=== PATIENT | female | born 1945 | race Caucasian/White ===

== ENCOUNTER 2024-09-02 15:57 | Inpatient (IN) ==
[2024-09-02] MEDS ORDERED: IOPAMIDOL 100 ML BOTTLE IV ONE (15:58)
[2024-09-02] MEDS: METOPROLOL TARTRATE 5 MG/5 ML VIAL IV ONE (16:20)
[2024-09-02] MEDS: 0.9 % SODIUM CHLORIDE 500 ML IV ONE (16:20)
[2024-09-02] MEDS: AMIODARONE 150 MG/3 ML VIAL IV ONE (16:40)
[2024-09-02 16:41] LABS: Basophils # (Auto) 0.05 K/mcL (0.00-0.30); Basophils % (Auto) 0.4 % (0.0-2.0); Eosinophils # (Auto) 0.05 K/mcL (0.00-0.70); Eosinophils % (Auto) 0.4 % (0.0-7.0); Hematocrit 29.8 % (34.1-44.9); Hemoglobin 8.1 g/dL (11.2-15.7); Lymphocytes # (Auto) 0.89 K/mcL (1.50-4.80); Lymphocytes % (Auto) 6.9 % (15.5-49.0); Mean Corpuscular HGB Conc 27.2 g/dL (31.0-36.0); Mean Platelet Volume 9.3 fL (8.8-12.5); Monocytes # (Auto) 0.81 K/mcL (0.10-0.90); Monocytes % (Auto) 6.3 % (1.0-12.0); Neutrophils % (Auto) 85.7 % (38.0-78.0); Platelet Count 429 K/mcL (140-440); RBC 3.35 M/mcL (3.59-5.38); Red Cell Distribution Width 19.1 % (11.5-14.5); WBC 12.9 K/mcL (4.5-11.0)
[2024-09-02] MEDS: AMIODARONE 360 MG in PREMIX 1 BAG IV SCH ×3 (16:50→23:42)
[2024-09-02 16:55] LABS: Prothrombin Time 13.3 sec (11.9-14.5)
[2024-09-02 17:07] LABS: ALT/SGPT 12 U/L (<40); AST/SGOT 22 U/L (<32); Albumin 3.5 gm/dL (3.2-5.2); Albumin/Globulin Ratio 1.4 (1.0-2.3); Alkaline Phosphatase 66 U/L (39-117); Bilirubin,Total 0.3 mg/dL (0.1-1.0); Blood Urea Nitrogen 24 mg/dL (8-23); Calcium 8.7 mg/dL (8.6-10.4); Carbon Dioxide 36 mmol/L (22-30); Chloride 94 mmol/L (96-108); Globulin 2.5 gm/dL (2.2-3.7); Glomerular Filtration Rate 91; Glucose 123 mg/dL (70-105); Potassium 4.2 mmol/L (3.3-5.1); Sodium 142 mmol/L (133-145)
[2024-09-02 17:12] LABS: Thyroid Stimulating Hormone 1.31 uIU/mL (0.27-5.01)
[2024-09-02] MEDS: DIGOXIN 500 MCG/2 ML AMPUL IV ONE (17:15)
[2024-09-02] MEDS: HEPARIN SOD,PORK IN 0.45% NACL 25,000 UNIT in PREMIX 1 BAG IV SCH (17:16)
[2024-09-02] MEDS: HEPARIN 5,000 UNIT/ML VIAL IV ONE (17:16)
[2024-09-02 18:02] LABS: Partial Thromboplastin Time 28.3 sec (20.0-37.0)
[2024-09-02 19:24] LABS: C-Reactive Protein 2.33 mg/dL (0.03-0.80)
[2024-09-02] MEDS: AZITHROMYCIN 250 MG TABLET PO ONE (19:42)
[2024-09-02] MEDS: cefTRIAXone 2 GM in DEXTROSE 5% IN WATER 50 ML IV ONE (19:43)
[2024-09-02] MEDS: cefTRIAXone 2 GM VIAL ONE (19:44)
[2024-09-02 20:13] LABS: Anisocytosis 1+ (None Seen); Band Neutrophils % 5 % (0-10); Hypochromasia 3+ (None Seen); Lymphocytes % 4 % (15-49); Microcytosis 1+ (None Seen); Monocytes % (Manual) 5 % (1-12); Ovalocytes FEW (None Seen); Platelet Estimate NORMAL (Normal); RBC Fragments RARE (None Seen); RBC Morphology ABNORMAL (Normal); Segmented Neutrophils % 86 % (38-78); Stomatocytes 1+ (None Seen); Target Cells FEW (None Seen)
[2024-09-02 21:17] LABS: Appearance,Urine Clear (Clear); Bacteria,Urine Rare /hpf (0); Bilirubin,Urine Negative (Negative); Color,Urine Yellow; Glucose,Urine (UA) Negative (Negative); Ketones,Urine 40 mg/dL (Negative); Leukocyte Esterase,Urine Negative /uL (Negative); Nitrate,Urine Negative (Negative); PH,Urine 5.5 (5.0-9.0); Protein,Urine Negative (Negative); Urine Blood Negative ery/mcL (Negative); Urine RBC 1 /hpf (0-3); Urine Squamous Epithelial Cell 2 /hpf (0-4); Urine WBC 1 /hpf (0-4); Urobilinogen,Urine Normal
[2024-09-02] MEDS ORDERED: POLYETHYLENE GLYCOL 3350 17 GM PACKET PO PRN (21:44)
[2024-09-02] MEDS ORDERED: POTASSIUM CHLORIDE 20 MEQ TABLET PO PRN ×2 (21:44)
[2024-09-02] MEDS ORDERED: ONDANSETRON 4 MG/2 ML VIAL IV PRN (21:44)
[2024-09-02] MEDS ORDERED: POTASSIUM CHLORIDE 40 MEQ in DEXTROSE 5% IN WATER 500 ML IV PRN (21:44)
[2024-09-02] MEDS ORDERED: MAGNESIUM SULFATE 2 GM/50 ML BAG IV PRN (21:44)
[2024-09-02] MEDS ORDERED: METOCLOPRAMIDE 10 MG/2 ML VIAL IV PRN (21:44)
[2024-09-02 22:19] LABS: Retic Absolute 0.12 M/mcL (0.02-0.10)
[2024-09-02] MEDS: ENOXAPARIN 40 MG/0.4 ML SYRINGE SQ SCH (22:34)
[2024-09-02] MEDS: DOCUSATE SODIUM 100 MG CAPSULE PO SCH (22:35)
[2024-09-02 23:11] LABS: Iron 26 ug/dL (37-145); TIBC Calculation 265 ug/dl (228-428); Transferrin % Saturation 10 % (15-50)
[2024-09-03] MEDS: AMIODARONE 360 MG/200 ML BAG IV ONE ×2 (00:08→11:27)
[2024-09-03 05:40] LABS: Hematocrit 29.3 % (34.1-44.9); Hemoglobin 8.1 g/dL (11.2-15.7); Mean Cell Volume 88.3 fL (80.0-100.0); Mean Corpuscular HGB Conc 27.6 g/dL (31.0-36.0); Mean Platelet Volume 8.9 fL (8.8-12.5); Platelet Count 363 K/mcL (140-440); RBC 3.32 M/mcL (3.59-5.38); Red Cell Distribution Width 19.2 % (11.5-14.5); WBC 5.2 K/mcL (4.5-11.0)
[2024-09-03 06:35] LABS: ALT/SGPT 15 U/L (<40); AST/SGOT 27 U/L (<32); Albumin 3.6 gm/dL (3.2-5.2); Albumin/Globulin Ratio 1.3 (1.0-2.3); Alkaline Phosphatase 67 U/L (39-117); Bilirubin,Direct < 0.2 mg/dL (0-0.3); Bilirubin,Total < 0.2 mg/dL (0.1-1.0); Blood Urea Nitrogen 24 mg/dL (8-23); C-Reactive Protein 3.35 mg/dL (0.03-0.80); Calcium 9.3 mg/dL (8.6-10.4); Carbon Dioxide 37 mmol/L (22-30); Chloride 93 mmol/L (96-108); Globulin 2.7 gm/dL (2.2-3.7); Glomerular Filtration Rate 91; Glucose 156 mg/dL (70-105); Lactate Dehydrogenase 181 U/L (135-225); Phosphorous 3.5 mg/dL (2.5-4.5); Potassium 4.4 mmol/L (3.3-5.1); Sodium 140 mmol/L (133-145); Triglycerides 77 mg/dL (<150); Uric Acid 4.5 mg/dL (2.5-8.0)
[2024-09-03 06:57] LABS: Anisocytosis 2+ (None Seen); Eosinophils % (Manual) 1 % (0-7); Hypochromasia 1+ (None Seen); Lymphocytes % 4 % (15-49); Monocytes % (Manual) 1 % (1-12); Platelet Estimate NORMAL (Normal); RBC Morphology ABNORMAL (Normal); Segmented Neutrophils % 94 % (38-78)
[2024-09-03] MEDS: IRON POLYSACCHARIDE COMPLEX 150 MG CAPSULE PO SCH (09:58)
[2024-09-03 12:02] LABS: Appearance,Pleural Fluid Hazy; Color,Pleural Fluid Yellow; Lymphocytes,Pleural Fluid 40 %; Mesothelial,Pleural Fluid 3 %; Monocytes,Pleural Fluid 28 %; Neutrophils,Pleural Fluid 29 %; RBC,Pleural Fluid <50,000 /cumm
[2024-09-03 12:03] LABS: pH,Body Fluid 7.67
[2024-09-03 12:34] LABS: LDH,Pleural Fluid 114 U/L (<122)
[2024-09-03] MEDS: cefTRIAXone 1 GM VIAL IV SCH (17:31)
[2024-09-03] MEDS: METOPROLOL TARTRATE 25 MG TABLET PO SCH (20:10)
[2024-09-03] MEDS: 0.9 % SODIUM CHLORIDE 10 ML SYRINGE IV SCH (20:11)
[2024-09-04] MEDS: METOPROLOL TARTRATE 5 MG/5 ML VIAL IV PRN (04:04)
[2024-09-04 05:52] LABS: Hemoglobin 7.5 g/dL (11.2-15.7)
[2024-09-04 06:27] LABS: C-Reactive Protein 2.01 mg/dL (0.03-0.80)
[2024-09-04 06:33] LABS: Blood Urea Nitrogen 19 mg/dL (8-23); Calcium 8.8 mg/dL (8.6-10.4); Carbon Dioxide 40 mmol/L (22-30); Chloride 97 mmol/L (96-108); Glomerular Filtration Rate 82; Glucose 136 mg/dL (70-105); Potassium 4.4 mmol/L (3.3-5.1); Sodium 144 mmol/L (133-145)
[2024-09-04] MEDS ORDERED: IOPAMIDOL 100 ML BOTTLE IV ONE (08:13)
[2024-09-04] MEDS: acetaZOLAMIDE SOD 500 MG VIAL IV ONE (08:28)
[2024-09-04] MEDS ORDERED: metroNIDAZOLE 500 MG/100 ML BAG IV SCH (09:00)
[2024-09-04] MEDS: FUROSEMIDE 20 MG/2 ML VIAL IV ONE ×2 (09:09→09:19)
[2024-09-04] MEDS: METOPROLOL TARTRATE 25 MG TABLET PO SCH (09:19)
[2024-09-04 19:16] LABS: Hematocrit 26.5 % (34.1-44.9); Hemoglobin 7.2 g/dL (11.2-15.7)
[2024-09-04] MEDS: ENOXAPARIN 40 MG/0.4 ML SYRINGE SQ SCH (21:05)
[2024-09-05 06:24] LABS: Basophils # (Auto) 0.03 K/mcL (0.00-0.30); Basophils % (Auto) 0.4 % (0.0-2.0); Eosinophils # (Auto) 0.08 K/mcL (0.00-0.70); Hematocrit 27.5 % (34.1-44.9); Hemoglobin 7.4 g/dL (11.2-15.7); Lymphocytes # (Auto) 1.22 K/mcL (1.50-4.80); Lymphocytes % (Auto) 15.1 % (15.5-49.0); Mean Cell Volume 90.5 fL (80.0-100.0); Mean Corpuscular HGB Conc 26.9 g/dL (31.0-36.0); Mean Platelet Volume 9.7 fL (8.8-12.5); Monocytes % (Auto) 7.4 % (1.0-12.0); Neutrophils % (Auto) 75.7 % (38.0-78.0); Platelet Count 392 K/mcL (140-440); RBC 3.04 M/mcL (3.59-5.38); Red Cell Distribution Width 19.3 % (11.5-14.5); WBC 8.1 K/mcL (4.5-11.0)
[2024-09-05 06:52] LABS: ALT/SGPT 13 U/L (<40); AST/SGOT 20 U/L (<32); Albumin 3.2 gm/dL (3.2-5.2); Albumin/Globulin Ratio 1.4 (1.0-2.3); Alkaline Phosphatase 59 U/L (39-117); Bilirubin,Direct < 0.2 mg/dL (0-0.3); Bilirubin,Total < 0.2 mg/dL (0.1-1.0); Blood Urea Nitrogen 14 mg/dL (8-23); Calcium 8.5 mg/dL (8.6-10.4); Carbon Dioxide 36 mmol/L (22-30); Chloride 100 mmol/L (96-108); Globulin 2.3 gm/dL (2.2-3.7); Glomerular Filtration Rate 86; Glucose 98 mg/dL (70-105); Lactate Dehydrogenase 143 U/L (135-225); Phosphorous 2.8 mg/dL (2.5-4.5); Potassium 3.8 mmol/L (3.3-5.1); Sodium 142 mmol/L (133-145); Triglycerides 111 mg/dL (<150); Uric Acid 3.9 mg/dL (2.5-8.0)
[2024-09-05] MEDS ORDERED: PHENOL/SODIUM PHENOLATE 5 SPRAY BOTTLE 180ML SSP PRN (08:27)
[2024-09-05] MEDS: BENZOCAINE/MENTHOL 1 LOZENGE PO PRN (08:54)
[2024-09-05] MEDS: MEGESTROL ACETATE 40 MG TABLET PO SCH (16:31)
[2024-09-05] MEDS: 0.9 % SODIUM CHLORIDE 250 ML IV SCH (16:31)
[2024-09-05] MEDS: MEGESTROL ACETATE 400 MG/10 ML UDC PO SCH (16:46)
[2024-09-05] MEDS: APIXABAN 2.5 MG TABLET PO SCH (20:50)
[2024-09-06 02:36] LABS: Nucleated Cells,Pleural Fld 35 /cumm
[2024-09-06 06:35] LABS: Basophils # (Auto) 0.04 K/mcL (0.00-0.30); Basophils % (Auto) 0.4 % (0.0-2.0); Eosinophils # (Auto) 0.12 K/mcL (0.00-0.70); Eosinophils % (Auto) 1.3 % (0.0-7.0); Hematocrit 28.1 % (34.1-44.9); Hemoglobin 7.6 g/dL (11.2-15.7); Lymphocytes # (Auto) 1.35 K/mcL (1.50-4.80); Lymphocytes % (Auto) 14.8 % (15.5-49.0); Mean Cell Volume 90.4 fL (80.0-100.0); Mean Platelet Volume 9.7 fL (8.8-12.5); Monocytes # (Auto) 0.75 K/mcL (0.10-0.90); Monocytes % (Auto) 8.2 % (1.0-12.0); Neutrophils % (Auto) 74.9 % (38.0-78.0); Platelet Count 388 K/mcL (140-440); RBC 3.11 M/mcL (3.59-5.38); Red Cell Distribution Width 18.9 % (11.5-14.5); WBC 9.1 K/mcL (4.5-11.0)
[2024-09-06 07:11] LABS: ALT/SGPT 10 U/L (<40); AST/SGOT 18 U/L (<32); Albumin 3.3 gm/dL (3.2-5.2); Albumin/Globulin Ratio 1.5 (1.0-2.3); Alkaline Phosphatase 64 U/L (39-117); Bilirubin,Direct < 0.2 mg/dL (0-0.3); Bilirubin,Total < 0.2 mg/dL (0.1-1.0); Blood Urea Nitrogen 15 mg/dL (8-23); Calcium 8.9 mg/dL (8.6-10.4); Carbon Dioxide 36 mmol/L (22-30); Chloride 101 mmol/L (96-108); Globulin 2.2 gm/dL (2.2-3.7); Glomerular Filtration Rate 91; Glucose 109 mg/dL (70-105); Lactate Dehydrogenase 134 U/L (135-225); Phosphorous 3.1 mg/dL (2.5-4.5); Potassium 4.3 mmol/L (3.3-5.1); Sodium 142 mmol/L (133-145); Triglycerides 91 mg/dL (<150); Uric Acid 3.2 mg/dL (2.5-8.0)
[2024-09-06] MEDS ORDERED: MEGESTROL ACETATE 40 MG TABLET PO SCH (09:00)
[2024-09-07 05:36] LABS: Basophils # (Auto) 0.03 K/mcL (0.00-0.30); Basophils % (Auto) 0.3 % (0.0-2.0); Eosinophils # (Auto) 0.19 K/mcL (0.00-0.70); Eosinophils % (Auto) 1.8 % (0.0-7.0); Hematocrit 27.5 % (34.1-44.9); Hemoglobin 7.5 g/dL (11.2-15.7); Lymphocytes # (Auto) 1.32 K/mcL (1.50-4.80); Lymphocytes % (Auto) 12.6 % (15.5-49.0); Mean Cell Volume 90.2 fL (80.0-100.0); Mean Corpuscular HGB Conc 27.3 g/dL (31.0-36.0); Mean Platelet Volume 9.3 fL (8.8-12.5); Monocytes # (Auto) 0.86 K/mcL (0.10-0.90); Monocytes % (Auto) 8.2 % (1.0-12.0); Neutrophils % (Auto) 76.7 % (38.0-78.0); Platelet Count 348 K/mcL (140-440); RBC 3.05 M/mcL (3.59-5.38); Red Cell Distribution Width 19.3 % (11.5-14.5); WBC 10.5 K/mcL (4.5-11.0)
[2024-09-07 05:53] LABS: ALT/SGPT 10 U/L (<40); AST/SGOT 15 U/L (<32); Albumin 3.2 gm/dL (3.2-5.2); Albumin/Globulin Ratio 1.4 (1.0-2.3); Alkaline Phosphatase 61 U/L (39-117); Bilirubin,Direct < 0.2 mg/dL (0-0.3); Bilirubin,Total < 0.2 mg/dL (0.1-1.0); Blood Urea Nitrogen 18 mg/dL (8-23); Calcium 8.6 mg/dL (8.6-10.4); Carbon Dioxide 38 mmol/L (22-30); Chloride 101 mmol/L (96-108); Globulin 2.3 gm/dL (2.2-3.7); Glomerular Filtration Rate 91; Glucose 98 mg/dL (70-105); Lactate Dehydrogenase 108 U/L (135-225); Phosphorous 3.1 mg/dL (2.5-4.5); Potassium 4.4 mmol/L (3.3-5.1); Sodium 143 mmol/L (133-145); Triglycerides 73 mg/dL (<150); Uric Acid 2.9 mg/dL (2.5-8.0)
[2024-09-07] MEDS: SENNOSIDES 1 TABLET PO PRN (20:31)
[2024-09-08 07:10] LABS: Basophils # (Auto) 0.03 K/mcL (0.00-0.30); Basophils % (Auto) 0.3 % (0.0-2.0); Eosinophils # (Auto) 0.19 K/mcL (0.00-0.70); Eosinophils % (Auto) 1.8 % (0.0-7.0); Hematocrit 28.5 % (34.1-44.9); Hemoglobin 7.7 g/dL (11.2-15.7); Lymphocytes # (Auto) 1.17 K/mcL (1.50-4.80); Lymphocytes % (Auto) 11.3 % (15.5-49.0); Mean Cell Volume 89.6 fL (80.0-100.0); Mean Platelet Volume 9.6 fL (8.8-12.5); Monocytes % (Auto) 7.7 % (1.0-12.0); Neutrophils % (Auto) 78.4 % (38.0-78.0); Platelet Count 364 K/mcL (140-440); RBC 3.18 M/mcL (3.59-5.38); Red Cell Distribution Width 19.7 % (11.5-14.5); WBC 10.3 K/mcL (4.5-11.0)
[2024-09-08 07:17] LABS: ALT/SGPT 10 U/L (<40); AST/SGOT 16 U/L (<32); Albumin 3.2 gm/dL (3.2-5.2); Albumin/Globulin Ratio 1.3 (1.0-2.3); Alkaline Phosphatase 58 U/L (39-117); Bilirubin,Total < 0.2 mg/dL (0.1-1.0); Blood Urea Nitrogen 14 mg/dL (8-23); Calcium 8.4 mg/dL (8.6-10.4); Carbon Dioxide 37 mmol/L (22-30); Chloride 100 mmol/L (96-108); Globulin 2.4 gm/dL (2.2-3.7); Glomerular Filtration Rate 91; Glucose 94 mg/dL (70-105); Potassium 4.5 mmol/L (3.3-5.1); Sodium 142 mmol/L (133-145)
[2024-09-08] MEDS: IPRATROPIUM/ALBUTEROL 3 ML AMPUL.NEB NEB PRN (20:56)
[2024-09-09 06:18] LABS: Basophils # (Auto) 0.04 K/mcL (0.00-0.30); Basophils % (Auto) 0.4 % (0.0-2.0); Eosinophils % (Auto) 1.8 % (0.0-7.0); Hematocrit 26.7 % (34.1-44.9); Hemoglobin 7.3 g/dL (11.2-15.7); Lymphocytes # (Auto) 1.04 K/mcL (1.50-4.80); Lymphocytes % (Auto) 9.4 % (15.5-49.0); Mean Cell Volume 90.2 fL (80.0-100.0); Mean Corpuscular HGB Conc 27.3 g/dL (31.0-36.0); Mean Platelet Volume 9.4 fL (8.8-12.5); Monocytes # (Auto) 0.91 K/mcL (0.10-0.90); Monocytes % (Auto) 8.2 % (1.0-12.0); Platelet Count 333 K/mcL (140-440); RBC 2.96 M/mcL (3.59-5.38); WBC 11.1 K/mcL (4.5-11.0)
[2024-09-09 06:52] LABS: ALT/SGPT 9 U/L (<40); AST/SGOT 15 U/L (<32); Albumin 3.2 gm/dL (3.2-5.2); Albumin/Globulin Ratio 1.4 (1.0-2.3); Alkaline Phosphatase 55 U/L (39-117); Bilirubin,Total < 0.2 mg/dL (0.1-1.0); Blood Urea Nitrogen 16 mg/dL (8-23); Calcium 8.4 mg/dL (8.6-10.4); Carbon Dioxide 36 mmol/L (22-30); Chloride 101 mmol/L (96-108); Globulin 2.3 gm/dL (2.2-3.7); Glomerular Filtration Rate 91; Glucose 94 mg/dL (70-105); Potassium 4.6 mmol/L (3.3-5.1); Sodium 142 mmol/L (133-145)
[2024-09-09] MEDS: HYDROCHLOROTHIAZIDE 25 MG TABLET PO SCH (08:18)
[2024-09-09] MEDS: LISINOPRIL 10 MG TABLET PO SCH (08:18)
[2024-09-09] MEDS ORDERED: LISINOPRIL/HCTZ 10/12.5MG TABLET PO SCH (09:00)
== END 2024-09-09 13:24 | DRG 291 ==
LOC: ED 15:57 → ICU 21:36 → MEDSUR 09-07 07:43
PROVIDERS: ADMIT Internal Medicine; ATTEND Internal Medicine